=== PATIENT | male | born 1970 | race Caucasian/White ===

== ENCOUNTER 2017-05-22 00:15 | Emergency (ER) | payer MEDICAID, OTHER, SELFPAY ==
[2017-05-22] MEDS ORDERED: Ketorolac 30 MG/ML SDV IVPUSH ONE (00:30)
[2017-05-22] MEDS ORDERED: Ondansetron 4 MG/2 ML SDV IVPUSH ONE (00:31)
[2017-05-22] MEDS ORDERED: Sodium Chloride 0.9% 1,000 ML IV ONE (00:31)
--- NOTE | 2017-05-22 00:37 | EDM.PDOC ---
ED HPI GENERAL MEDICAL PROBLEM - General Chief Complaint: Abdominal Pain Stated Complaint: RIGHT ABD PAIN Time Seen by Provider: 05/22/17 00:32 Source of Information: Reports: Patient History Limitations: Reports: No Limitations - History of Present Illness INITIAL COMMENTS - FREE TEXT/NARRATIVE: c/o R groin pain intermittent RLQ pain x 2d, at clinic and had CT scheduled for today, WBC 14k without shift, UA with 5-10 WBC no h/o kidney stones no f/c/d no V, some N no radiation squatting on floor in room, difficult getting comfortable pain got better so pt planned on CT today, however pain came back, now inc'd intensity R lower abdomen Pain Score (Numeric/FACES): 8 - Related Data Allergies Allergy/AdvReac Type Severity Reaction Status Date / Time No Known Allergies Allergy Verified 05/22/17 00:24 Home Meds: Home Meds Ketorolac [Toradol] 10 mg PO QID #20 tab 05/22/17 [Rx] Tamsulosin [Flomax] 0.4 mg PO BID #10 cap.er 05/22/17 [Rx] ED ROS GENERAL - Review of Systems Review Of Systems: See Below Constitutional: Reports: No Symptoms. Denies: Fever, Chills HEENT: Reports: No Symptoms Respiratory: Reports: No Symptoms Cardiovascular: Reports: No Symptoms Endocrine: Reports: No Symptoms GI/Abdominal: Reports: Abdominal Pain : Reports: No Symptoms Musculoskeletal: Reports: No Symptoms Skin: Reports: No Symptoms Neurological: Reports: No Symptoms Psychiatric: Reports: No Symptoms Hematologic/Lymphatic: Reports: No Symptoms Immunologic: Reports: No Symptoms ED EXAM, RENAL/ - Physical Exam Exam: See Below Exam Limited By: No Limitations General Appearance: Alert, WD/WN, Moderate Distress, Other (squatting on floor trying to get comfortable) Ears: Normal External Exam Nose: Normal Inspection Throat/Mouth: Normal Inspection, Normal Voice, No Airway Compromise Head: Atraumatic, Normocephalic Neck: Normal Inspection, Supple, Non-Tender, Full Range of Motion Respiratory/Chest: No Respiratory Distress, Lungs Clear, Normal Breath Sounds, No Accessory Muscle Use Cardiovascular: Regular Rate, Rhythm, No Edema, No Gallop, No Murmur GI/Abdominal: Soft, Other (back no CVAT, 1+ tender RLQ just above mid inguinal line) Back Exam: Normal Inspection, Full Range of Motion, NT Extremities: Normal Inspection, Normal Range of Motion, Non-Tender, No Pedal Edema Neurological: Alert, Oriented, CN II-XII Intact, No Motor/Sensory Deficits Psychiatric: Normal Affect, Normal Mood Skin Exam: Warm, Dry, Intact, Normal Color, No Rash Lymphatic: No Adenopathy Course - Vital Signs Last Recorded V/S: Last Vital Signs Temp 36.8 C 05/22/17 00:18 Pulse 90 05/22/17 00:18 Resp 18 05/22/17 02:38 BP 143/74 H 05/22/17 02:38 Pulse Ox 99 05/22/17 02:38 - Orders/Labs/Meds Orders: Active Orders 24 hr Category Date Time Status Abdomen Pelvis wo Cont [CT] Stat Exams 05/22/17 00:26 Taken Labs: Laboratory Tests 05/22/17 05/22/17 05/22/17 Range/Units 00:40 00:40 00:40 WBC 9.5 (4.5-12.0) X10-3/uL RBC 5.19 (4.30-5.75) x10(6)uL Hgb 15.6 H (11.5-15.5) g/dL Hct 45.7 (30.0-51.3) % MCV 88.1 (80-96) fL MCH 30.1 (27.7-33.6) pg MCHC 34.2 (32.2-35.4) g/dL RDW 12.7 (11.5-15.5) % Plt Count 138 (125-369) X10(3)uL MPV 9.3 (7.4-10.4) fL Neut % (Auto) 74.2 (46-82) % Lymph % (Auto) 17.1 (13-37) % [place] % (Auto) 5.8 (4-12) % Eos % (Auto) 3 (1.0-5.0) % Baso % (Auto) 0 (0-2) % Neut # (Auto) 7.0 (1.6-8.3) # Lymph # (Auto) 1.6 (0.6-5.0) # [place] # (Auto) 0.6 (0.0-1.3) # Eos # (Auto) 0.3 (0.0-0.8) # Baso # (Auto) 0.0 (0.0-0.2) # Sodium 136 (135-145) mmol/L Potassium 3.9 (3.5-5.3) mmol/L Chloride 103 (100-110) mmol/L Carbon Dioxide 26 (23-29) mmol/L BUN 21 H (5-20) mg/dL Creatinine 1.1 (0.6-1.3) mg/dL Est Cr Clr Drug Dosing 98.60 mL/min Estimated GFR (MDRD) > 60 (>60) BUN/Creatinine Ratio 19.1 (9-20) Glucose 127 H (80-116) mg/dL Calcium 8.8 (8.6-10.2) mg/dL C-Reactive Protein < 0.5 (0.0-1.0) mg/dL Urine Color (YELLOW) Urine Appearance (CLEAR) Urine pH (5.0-6.5) Ur Specific Winter (1.010-1.025) Urine Protein (NEGATIVE) mg/dL Urine Glucose (UA) (NEGATIVE) mg/dL Urine Ketones (NEGATIVE) mg/dL Urine Occult Blood (NEGATIVE) Urine Nitrite (NEGATIVE) Urine Bilirubin (NEGATIVE) Urine Urobilinogen (NEGATIVE) mg/dL Ur Leukocyte Esterase (NEGATIVE) Urine RBC (0) Urine WBC (0) Ur Squamous Epith Cells (NS,R,O) Calcium Oxalate Crystal (NS) Amorphous Sediment Urine Bacteria (NS) 05/22/17 Range/Units 02:05 WBC (4.5-12.0) X10-3/uL RBC (4.30-5.75) x10(6)uL Hgb (11.5-15.5) g/dL Hct (30.0-51.3) % MCV (80-96) fL MCH (27.7-33.6) pg MCHC (32.2-35.4) g/dL RDW (11.5-15.5) % Plt Count (125-369) X10(3)uL MPV (7.4-10.4) fL Neut % (Auto) (46-82) % Lymph % (Auto) (13-37) % [place] % (Auto) (4-12) % Eos % (Auto) (1.0-5.0) % Baso % (Auto) (0-2) % Neut # (Auto) (1.6-8.3) # Lymph # (Auto) (0.6-5.0) # [place] # (Auto) (0.0-1.3) # Eos # (Auto) (0.0-0.8) # Baso # (Auto) (0.0-0.2) # Sodium (135-145) mmol/L Potassium (3.5-5.3) mmol/L Chloride (100-110) mmol/L Carbon Dioxide (23-29) mmol/L BUN (5-20) mg/dL Creatinine (0.6-1.3) mg/dL Est Cr Clr Drug Dosing mL/min Estimated GFR (MDRD) (>60) BUN/Creatinine Ratio (9-20) Glucose (80-116) mg/dL Calcium (8.6-10.2) mg/dL C-Reactive Protein (0.0-1.0) mg/dL Urine Color Yellow (YELLOW) Urine Appearance Slightly cloudy (CLEAR) Urine pH 5.0 (5.0-6.5) Ur Specific Winter 1.030 H (1.010-1.025) Urine Protein Negative (NEGATIVE) mg/dL Urine Glucose (UA) Normal (NEGATIVE) mg/dL Urine Ketones Negative (NEGATIVE) mg/dL Urine Occult Blood Large H (NEGATIVE) Urine Nitrite Negative (NEGATIVE) Urine Bilirubin Small H (NEGATIVE) Urine Urobilinogen Normal (NEGATIVE) mg/dL Ur Leukocyte Esterase Negative (NEGATIVE) Urine RBC 5-10 (0) Urine WBC 0-5 (0) Ur Squamous Epith Cells Occasional (NS,R,O) Calcium Oxalate Crystal Rare H (NS) Amorphous Sediment Moderate Urine Bacteria Few H (NS) Meds: Medications Discontinued Medications Generic Name Dose Route Start Last Admin Trade Name Freq PRN Reason Stop Dose Admin Sodium Chloride 1,000 mls @ 999 mls/hr 05/22/17 00:31 05/22/17 01:05 Normal Saline IV 05/22/17 01:31 999 mls/hr .BOLUS ONE Administration Ketorolac Tromethamine 30 mg 05/22/17 00:30 05/22/17 01:05 Toradol IVPUSH 05/22/17 00:31 30 mg ONETIME ONE Administration Ondansetron HCl 4 mg 05/22/17 00:31 05/22/17 01:06 Zofran IVPUSH 05/22/17 00:32 4 mg ONETIME ONE Administration Tamsulosin HCl 0.4 mg 05/22/17 02:16 05/22/17 02:27 Flomax PO 05/22/17 02:17 0.4 mg ONETIME ONE Administration - Re-Assessments/Exams Free Text/Narrative Re-Assessment/Exam: 05/22/17 02:42 pain down to 1/10 after Toradol 30 mg IV, CT showed 5 mm stone at R UVJ, still with pain at d/c, repeat u/a with no evidence of infection. Pt works at [employer], agrees to increase fluids and see PCP in 2d and urologist in 4d if necessary. Given take-home pack of Lortab 5/325 #8 tabs. Departure - Departure Time of Disposition: 02:44 Disposition: Home, Self-Care 01 Condition: Good Clinical Impression: Right ureteral stone, Renal colic on right side - Discharge Information Prescriptions: Ketorolac [Toradol] 10 mg PO QID #20 tab Tamsulosin [Flomax] 0.4 mg PO BID #10 cap.er Instructions: Kidney Stones, [id number] Referrals: Lb Griffith MD [Primary Care Provider] - Forms: ED Department Discharge Additional Instructions: Drink adequate fluids to produce 2 liters of urine daily. Screen your urine. To relax the ureteral muscle, take tamsulosin 0.4 mg 1 tab 2 times a day until the stone passes. For pain and to relax the ureteral muscle, take ketorolac 10 mg 1 tab 4 times a day until the stone passes. No ibuprofen or NSAIDs while on the ketorolac. For pain, as needed, take hydrocodone/acetaminophen 5/325 mg 1 tab every 6 hours as needed. No alcohol. See your doctor in 2 days and a urologist in 4 days if needed. Return to ED if the pain gets worse or you develop new symptoms such as a fever. Call your Physician or Return to Emergency Department if: * Your condition worsens in any way. * You develop fever greater than 100.4. * You have vomitting that does not stop with medications. * You have pain that is not controlled with medications. - My Orders Last 24 Hours: My Active Orders 05/22/17 00:26 Abdomen Pelvis wo Cont [CT] Stat - Assessment/Plan Last 24 Hours: My Active Orders 05/22/17 00:26 Abdomen Pelvis wo Cont [CT] Stat
[2017-05-22] MEDS ORDERED: Tamsulosin 0.4 MG Cap.ER PO ONE (02:16)
[2017-05-22] MEDS ORDERED: Acetaminophen/HYDROcodone 325-5 MG Tab PO ONE (02:22)
[2017-05-22 02:39] VITALS: BP 143/74
== END 2017-05-22 02:56 | disposition home or self-care (01) ==
LOC: FB.ED 00:15
DX: N13.2 Hydronephrosis with renal and ureteral calculous obstruction (principal)
CPT/HCPCS: 36415; 74176; 80048; 81001; 85025; 86140; 96361; 96374; 96375; 99284; A9270; J1885; J2405; J7040; 99283